=== PATIENT | female | born 1995 | race Caucasian/White ===

== ENCOUNTER 2018-02-20 05:48 | Inpatient (IN) | payer OTHER, SELFPAY ==
[2018-02-20] MEDS: Hamamelis Leaf/Glycerin 100 EACH BOX PR (08:32)
[2018-02-20] MEDS: Oxytocin 10 UNITS/ML VIAL IM (08:36)
[2018-02-21 07:05] LABS: HCT 33.2 % (36.0-46.0); HGB 11.5 g/dL (12.0-15.5); Mean Corp. HGB Concentration 34.6 g/dL (32.0-36.0); Mean Corpuscular Hemoglobin 31.3 pg (27.0-33.0); Mean Corpuscular Volume 90.2 fL (80-95); Mean Platelet Volume 11.4 fL (8.0-11.0); Platelet Count 124 x1000/uL (130-400); RBC 3.68 m/cumm (4.00-5.20); RBC Distribution Width 12.5 % (11.7-14.6); White Blood Cell Count 9.22 k/cumm (4.4-10.8)
== END 2018-02-22 10:00 | disposition home or self-care (01) | DRG 807 ==
PROVIDERS: Admitting Provider Family Medicine; PCP Family Medicine; Visit Provider Family Medicine
DX: O62.3 Precipitate labor (principal); Z37.0 Single live birth; Z3A.40 40 weeks gestation of pregnancy; O99.824 Streptococcus B carrier state complicating childbirth; O77.0 Labor and delivery complicated by meconium in amniotic fluid; O76 Abnormality in fetal heart rate and rhythm complicating labor and delivery; O66.0 Obstructed labor due to shoulder dystocia
CPT/HCPCS: 36415; 85027